=== PATIENT | male | born 1960 ===

== ENCOUNTER 2018-10-05 08:46 | Emergency (ER) | payer OTHER ==
[2018-10-05 08:46] VITALS: BMI 25.2
[2018-10-05 09:02] VITALS: TEMP 98
--- NOTE | 2018-10-05 09:13 | ED PDOC ---
Arrival/HPI - General Chief Complaint: Lower Extremity Problem/Injury Time Seen by Provider: 10/05/18 08:53 Historian: Patient - History of Present Illness Narrative History of Present Illness (Text): 10/05/18 09:08 58 year old male, with no significant past medical history, presents to the emergency department complaining of right knee pain s/p pushing a stretcher bed 2 days ago. Patient reports he was pushing a stretcher bed on and uneven level floor when he twisted his right knee and noticed pain. He reports difficulty walking to due to the pain. Patient reports taking Tylenol, Motrin, and Advil without any relief. Patient denies any fever, chills, chest pain, shortness of breath, back pain, neck pain, headache, dizziness, or any other complaints. PMD: Dr. Brewer Time/Duration: Other (2 days ago) Symptom Onset: Sudden Symptom Course: Unchanged Activities at Onset: Light Context: Work Past Medical History - Provider Review Nursing Documentation Reviewed: Yes - Past History Past History: No Previous - Psychiatric Hx Substance Use: No - Past Surgical History Past Surgical History: No Previous Family/Social History - Physician Review Nursing Documentation Reviewed: Yes Family/Social History: No Known Family HX Smoking Status: Heavy Smoker > 10 Cigarettes Daily Hx Alcohol Use: No Hx Substance Use: No Hx Substance Use Treatment: No Allergies/Home Meds Allergies/Adverse Reactions: Allergies codeine Allergy (Verified 10/05/18 08:58) RASH shellfish derived Allergy (Verified 10/05/18 08:58) RASH strawberry Allergy (Verified 10/05/18 08:58) RASH Review of Systems - Physician Review All systems were reviewed & negative as marked: Yes - Review of Systems Constitutional: absent: Fevers, Other (Chils) Respiratory: absent: SOB Cardiovascular: absent: Chest Pain Musculoskeletal: Other (right knee pain). absent: Back Pain, Neck Pain Neurological: absent: Headache, Dizziness Physical Exam - Physical Exam Narrative Physical Exam (Text): Gen: VS reviewed, alert, well developed, well nourished, nontoxic, mild distress. ENT: normal pharynx. Eye: EOMI, PERRL. Neck: no JVD, supple, no adenopathy. CV: regular rate, regular rhythm, no rubs, no murmur, no gallops, S1, S2, pulses equal and strong. Pulm: no distress, clear to auscultation, no wheeze, no rhonchi, breath sounds equal, no rales. Abd: soft, nontender, no guarding, no rebound, no rigidity, normal bowel sounds. Ext: Tender to the medial knee. ROM able to flex 90 degrees. Medial pain with valgus stress. Positive appley compression. No edema, no tenderness on the patella, no significant effusion, no warmth to touch. Skin: good color, no rash, no cyanosis. Psych: responds appropriately to questions, normal affect. Neuro: oriented x 3, CN2-12 intact grossly, motor intact, sensation intact. Vital Signs Reviewed: Yes Vital Signs Temp Pulse Resp BP Pulse Ox 10/05/18 08:52 98 F 70 18 119/77 98 Temperature: Afebrile Blood Pressure: Normal Pulse: Regular Respiratory Rate: Normal Medical Decision Making ED Course and Treatment: 10/05/18 09:08 Impression: 58 year old male presents complaining of right knee pain s/p pushing a stretcher bed on an uneven level floor and twisting his knee 2 days ago. Plan: -- Toradol, Tylenol -- Knee with patella Right 3 V X-ray -- Reassess and disposition Progress Notes: 10/05/18 10:45 On re-evaluation, patient feels better and is in no acute distress. I have discussed the results and plan with the patient, who expresses understanding. Patient in agreement with plan to be discharged home. Patient is stable for discharge. Patient was instructed to follow up with physician or return if symptoms worsen or new concerning symptoms arise. - RAD Interpretation Narrative RAD Interpretations (Text): EXAM: Right knee with patella 3V x-ray Dictator : Margaret Hinkle MD Report Date : 10/05/2018 10:27:01 IMPRESSION: No acute fracture or dislocation. Electrical Experimental Mechanic: Radiologist - Scribe Statement The provider has reviewed the documentation as recorded by the Delroy Jimenez Provider Scribe Attestation: All medical record entries made by the Scribe were at my direction and personally dictated by me. I have reviewed the chart and agree that the record accurately reflects my personal performance of the history, physical exam, medical decision making, and the department course for this patient. I have also personally directed, reviewed, and agree with the discharge instructions and disposition. Disposition/Present on Arrival - Present on Arrival Any Indicators Present on Arrival: No History of DVT/PE: No History of Uncontrolled Diabetes: No Urinary Catheter: No History of Decub. Ulcer: No History Surgical Site Infection Following: None - Disposition Have Diagnosis and Disposition been Completed?: Yes Diagnosis: Knee injury Disposition: HOME/ ROUTINE Disposition Time: 10:45 Patient Plan: Discharge Patient Problems: Current Active Problems Problem Status Onset Knee injury Acute Condition: STABLE Discharge Instructions (ExitCare): Knee Sprain (DC) Additional Instructions: You must follow up with work health. JAMEY LASSITER, thank you for letting us take care of you today. Your provider was Dr. Bin eLe and you were treated for right knee pain. The emergency medical care you received today was directed at your acute symptoms. If you were prescribed any medication, please fill it and take as directed. It may take several days for your symptoms to resolve. Return to the Emergency Department if your symptoms worsen, do not improve, or if you have any other problems. Please contact your doctor or call one of the physicians/clinics you have been referred to that are listed on the Patient Visit Information form that is included in your discharge packet. Bring any paperwork you were given at discharge with you along with any medications you are taking to your follow up visit. Our treatment cannot replace ongoing medical care by a primary care pro vider outside of the emergency department. Thank you for allowing the [facility] team to be part of your care today. If you had an X-Ray or CT scan: A Radiologist will review the ED reading if any change in treatment is needed we will contact you. If you had a blood, urine, or wound culture: It will take several days for the results, if any change in treatment is needed we will contact you. If you had an STI test: It will take 48 hours for the results. Please call after 1 week if you have not heard back. Prescriptions: Ketorolac Tromethamine [Toradol] 10 mg PO Q6H 5 Days #20 tab Referrals: [facility] [Outside] - Follow up with primary Leobardo Messer MD [Staff Provider] - Follow up with primary Forms: [facility] ([place]), WORK NOTE
--- NOTE | 2018-10-05 10:30 | RAD ---
Date of service: 10/05/2018 PROCEDURE: Right Knee Radiographs. HISTORY: pain COMPARISON: None. FINDINGS: BONES: Bone alignment and mineralization are normal. There is no acute displaced fracture or bone destruction. JOINTS: Normal. No osteoarthritis. JOINT EFFUSION: There is a small suprapatellar joint effusion. OTHER FINDINGS: None. IMPRESSION: No acute fracture or dislocation.
[2018-10-05 11:59] VITALS: BP 118/72; PULSE 74; RESP 16; O2SAT 100
== END 2018-10-05 11:20 | disposition home or self-care (01) ==
LOC: ED 08:46
DX: S89.91XA Unspecified injury of right lower leg, initial encounter (principal); X50.0XXA Overexertion from strenuous movement or load, initial encounter; Y92.238 Other place in hospital as the place of occurrence of the external cause; Y99.0 Civilian activity done for income or pay
CPT/HCPCS: 73562; 96372; 99282; J1885

== ENCOUNTER 2019-01-03 12:00 | Day surgery (SDC) | payer OTHER ==
[2019-01-03 12:31] VITALS: RESP 20; TEMP 98.5
[2019-01-03] MEDS ORDERED: Lidocaine 1% Inj (20ml) ONE (14:26)
[2019-01-03] MEDS ORDERED: Bupivacaine 0.5% 50 ML IJ ONE ×2 (14:26→14:50)
[2019-01-03 15:14] VITALS: PULSE 65
[2019-01-03 15:19] VITALS: O2SAT 100
[2019-01-03 15:33] VITALS: BP 132/84
--- NOTE | 2019-01-08 03:24 | OP ---
PROCEDURE DATE: 01/03/2019 PREOPERATIVE DIAGNOSIS: Posterior neck mass. POSTOPERATIVE DIAGNOSIS: Sebaceous cyst of the posterior neck. SURGEON: Peter Javier MD CONTROL ROOM TECHNICIAN: Almas Ny DO ANESTHESIA ADMINISTERED BY: Riccardo Farrell MD ANESTHESIA: Local anesthesia. ESTIMATED BLOOD LOSS: Minimal. SPECIMEN: Sebaceous cyst of the posterior neck. INDICATIONS: The patient is a 58-year-old male with history of a large lump on the posterior neck measuring to about 4.3 x 3.8 cm. The patient was complaining of increasing pain and discomfort and was scheduled for excision of the lesion. DESCRIPTION OF PROCEDURE: The patient was brought to the operating room and placed on the operating table in supine position. The patient was connected to EKG, blood pressure, and pulse oximetry monitors and was placed in a prone position. The patient then was prepped and draped in the usual sterile fashion. First, a standard time-out procedure took place and everybody in the room agreed as to the patient's identity, diagnosis, and procedure to be performed. Using lidocaine mixed with Marcaine, the area of the lesion was infiltrated. An elliptical incision was made directly overlying the lesion in order to excise, careful dissection was done on both sides of the lesion in order to separate the skin from the underlying sebaceous cyst. The cyst was removed in its entirety and the wound was copiously irrigated. All the bleeding points were cauterized and the wound was closed in layers using 3-0 Vicryl on a deep dermal layer and 4-0 Monocryl for the skin. A sterile Dermabond dressing was applied to the wound. The patient was transferred to the recovery room for further observation. Peter Javier MD
== END 2019-01-03 15:30 | disposition home or self-care (01) ==
LOC: OPSURG 12:00
PROVIDERS: ATTEND General Practice
DX: L72.3 Sebaceous cyst (principal); L72.0 Epidermal cyst